=== PATIENT | female | born 1990 | race Caucasian/White ===

== ENCOUNTER 2016-12-24 09:50 | Emergency (ER) | payer MEDICAID ==
[2016-12-24] MEDS ORDERED: KETOROLAC 60 MG/2 ML VIAL IM STA (10:57)
[2016-12-24] MEDS ORDERED: ONDANSETRON ODT 4 MG TABLET TL STA (10:57)
[2016-12-24] MEDS ORDERED: ONDANSETRON ODT 4 MG TABLET ONE (10:59)
[2016-12-24] MEDS ORDERED: KETOROLAC 60 MG/2 ML VIAL ONE (10:59)
[2016-12-24] MEDS ORDERED: HYDROcod/ACETAM 5/325 MG TABLET PO STA (13:45)
[2016-12-24] MEDS ORDERED: CEPHALEXIN 250 MG CAPSULE PO STA (13:46)
[2016-12-24] MEDS ORDERED: HYDROcod/ACETAM 5/325 MG TABLET ONE (13:56)
[2016-12-24] MEDS ORDERED: CEPHALEXIN 250 MG CAPSULE PO ONE (13:56)
== END 2016-12-24 14:14 | disposition home or self-care (01) ==
DX: N13.2 Hydronephrosis with renal and ureteral calculous obstruction (principal); R82.71 Bacteriuria; N28.9 Disorder of kidney and ureter, unspecified
CPT/HCPCS: 74176; 81001; 81025; 96372; 99283; 99284; A9270; Q0162